=== PATIENT | female | born 1955 | race African-American/Black ===

== ENCOUNTER 2018-11-01 09:22 | Day surgery (SDC) | payer OTHER ==
[2018-11-01] VITALS (12 sets, daily range): BP systolic 95–145; BP diastolic 65–87; PULSE 48–84; RESP 10–51; Ht 152.4 cm; Wt 81.0 kg
[~2018-11-01] VITALS: Ht 152.4 cm; Wt 81.0 kg
[~2018-11-01 09:22] MED LIST: CIPROFLOXACIN 400MG/D5W 200 ML IVPB ONE
[2018-11-01] MEDS ORDERED: HYDR25TA6 PO (10:29)
[2018-11-01] MEDS ORDERED: ATEN-51 PO (10:30)
[2018-11-01] MEDS ORDERED: HYDR-4011 PO (10:30)
[2018-11-01] MEDS ORDERED: GABA400C14 PO (10:31)
--- NOTE | 2018-11-01 12:46 | HPN ---
Date/Time of Note Date/Time of Note DATE: 11/01/18 TIME: 12:46 Interval H&P Admission Note Pt. seen H&P reviewed: No system changes FATIMAH HOLLEY November 01, 2018 12:46
[2018-11-01] MEDS ORDERED: IOHEXOL 300MG/ML 30 ML BTL ONE (12:47)
--- NOTE | 2018-11-01 12:48 | PREAC ---
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) Recreational drugs: Other (former smoker) Surgery & Anesthesia Issues No known issue Meds Anticoagulation: No Beta Bahman within 24 hr: Yes Reported Medications Gabapentin* (Gabapentin*) 400 Mg Capsule, 400 MG PO QHS, #90 CAP 11/01/18 Hydrocodone/Acetaminophen ([place] 5-325 Tablet) 1 Each Tablet, 1 EACH PO BID PRN for PAIN, TAB 11/01/18 Atenolol* (Atenolol*) 25 Mg Tablet, 25 MG PO QPM, #30 TAB 11/01/18 Hydrochlorothiazide* (Hydrochlorothiazide*) 25 Mg Tab, 25 MG PO DAILY, #30 TAB 11/01/18 Meds reviewed: Yes Allergies Coded Allergies: aspirin (Unverified Allergy, Unknown, 11/01/18) avocado (Verified Allergy, Unknown, 11/01/18) strawberry (Unverified Allergy, Unknown, 11/01/18) watermelon (Verified Allergy, Unknown, 11/01/18) Allergies Reviewed: Yes Labs/Studies Labs Reviewed: Reviewed by anesthesiologist Result Diagram: 11/01/18 1040 11/01/18 1040 Laboratory Tests 11/01/18 10:40 test: N/A Studies: ECG, CXR Pre-procedure Exam Last vitals Vital Signs Date Temp Pulse Resp B/P (MAP) Pulse Ox O2 O2 Flow FiO2 Time Delivery Rate 11/01/18 97.4 84 16 120/65 97 Room Air 10:55 (83) Airway: Adequate mouth opening, Adequate thyromental dist Mallampati: Mallampati II Teeth: Normal (edentulous) Lung: Normal Heart: Normal ASA Physical Status ASA physical status: 3 Emergency: None Planned Anesthetic General/MAC: LMA Planned Pain Management Parenteral pain med Pre-operative Attestations Prior to commencing anesthesia and surgery, the patient was re-evaluated, there was verification of: *The patient's identity *The results of appropriate recent lab work and preoperative vital signs *The above evaluation not changing prior to induction *Anesthetic plan, risk benefits, alternative and complications discussed with patient/family; questions answered; patient/family understands, accepts and wishes to proceed. RADHA TREVIÑO WHEEL AND AXLE INSPECTOR November 01, 2018 12:48
[2018-11-01] MEDS ORDERED: PROPOFOL 20 ML ONE (12:51)
[2018-11-01] MEDS ORDERED: LIDOCAINE 2% (SDV) 5 ML INJ ONE (12:51)
[2018-11-01] MEDS ORDERED: FENTAnyl 50 MCG/ML VIAL ONE (12:52)
[2018-11-01] MEDS ORDERED: GLYCOPYRROLATE 0.4 MG INJ ONE (13:00)
[2018-11-01] MEDS ORDERED: CIPROFLOXACIN 400MG/D5W 200 ML ONE (13:06)
[2018-11-01] MEDS ORDERED: ONDANSETRON 4 MG INJ ONE (13:08)
[2018-11-01] MEDS ORDERED: FAMOTIDINE 20 MG INJ ONE (13:08)
[2018-11-01] MEDS ORDERED: DEXAMETHASONE 4 MG/ML 5 ML INJ ONE (13:08)
[2018-11-01] MEDS ORDERED: EPHEDrine 25 MG/5 ML SYG ONE (13:12)
--- NOTE | 2018-11-01 13:57 | PDOCDIS ---
Discharge Instructions DIAGNOSIS Discharge Diagnosis kidney stone CONDITION Suzie Patient Condition: Chadd Good HOME CARE INSTRUCTIONS: Suzie Diet Instructions: Chadd Reduced Calorie ACTIVITY: Suzie Activity Restrictions: Chadd Slowly Increase Activity Suzie Bathing Restrictions: Chadd Shower FOLLOW UP/APPOINTMENTS Follow-up Plan obtain x ray in 2 weeks then follow up in office for removal of stent, call office to schedule REFERRALS Suzie Referring Provider: FATIMAH Serna EVAN November 01, 2018 13:57
--- NOTE | 2018-11-01 13:59 | OPR ---
Date/Time of Note Date/Time of Note DATE: 11/01/18 TIME: 13:58 Operative Report Procedure Date: November 01, 2018 Preoperative Diagnosis kidney stone Postoperative Diagnosis same Operation/Procedure Performed cysto, r rgp, stent, r eswl Surgeon azalia Joint Supervisor none Anesthesia Type: general Estimated Blood Loss: none Transfusion none Specimen none Grafts/Implants none Tubes/Drains 22 cm 4.8 f stent Complications none Pt Condition Post Procedure: stable Disposition: PACU Indications stone Procedure Description full note dictated FATIMAH HOLLEY November 01, 2018 13:59
--- NOTE | 2018-11-01 14:15 | PAC ---
Date/Time of Note Date/Time of Note DATE: 11/01/18 TIME: 14:13 Post-Anesthesia Notes Post-Anesthesia Note Last documented vital signs Vital Signs Date Temp Pulse Resp B/P (MAP) Pulse Ox O2 O2 Flow FiO2 Time Delivery Rate 11/01/18 97.4 84 16 120/65 97 Room Air 10:55 (83) Activity: WNL Respiratory function: WNL Cardiovascular function: WNL Mental status: Baseline Pain reasonably controlled: Yes Hydration appropriate: Yes Nausea/Vomiting absent: Yes Comments BP 134/68 Spo2 100% HR 62 RR 16 Temp 97.2F RADHA TREVIÑO DIRECTOR STAGE November 01, 2018 14:15
[2018-11-01] MEDS ORDERED: KETOROLAC 15 MG INJ IV PRN (14:30)
[2018-11-01] MEDS ORDERED: FENTAnyl 50 MCG/ML VIAL IV PRN ×2 (14:30)
[2018-11-01] MEDS ORDERED: OXYCODONE/ACETAMINOPHEN (5/325) TAB PO PRN (14:30)
[2018-11-01] MEDS ORDERED: HYDROmorphONE 1 MG/5 ML IV SYRINGE IV PRN ×2 (14:30)
[2018-11-01] MEDS ORDERED: ONDANSETRON 4 MG INJ IV PRN (14:30)
[2018-11-01] MEDS ORDERED: LACTATED RINGER'S 1,000 ML IV SCH (14:30)
[2018-11-01] MEDS ORDERED: MEPERIDINE 25 MG INJ IV PRN (14:30)
--- NOTE | 2018-11-01 15:35 | OPR ---
DATE OF OPERATION: 11/01/2018 PREOPERATIVE DIAGNOSIS: Right nephrolithiasis. POSTOPERATIVE DIAGNOSIS: A 10 x 6 x 6 right midpole renal calculi. OPERATION PERFORMED: Cystoscopy, right retrograde pyelogram, insertion of right ureteral stent, righ t extracorporeal shockwave lithotripsy. SURGEON: Jose Pop MD ANESTHESIA: General. COMPLICATIONS: None. DRAINS: A 22 cm 4.8-Niue[place] double-J ureteral stent. DESCRIPTION OF PROCEDURE: The patient was brought into the operating room and placed on the [employer] SLX lithotripter for right extracorporeal shockwave lithotripsy. A timeout was undertaken. Appropriate pressure points were padded. She received preoperative antibiotic therapy and sequential compression devices were applied. A KUB was obtained which demonstrated a 10 x 6 x 6 mm radiodense stone overlying the right renal fossa. Rigid cystoscopy was undertaken with a 12-degree and 30-degre e angle lens. No abnormalities of the urethra could be appreciated. Bowel was inspected in a system atic fashion. No foreign body, bladder stone or tumor could be appreciated. Bilateral ureteral orif ices within normal limits. A right retrograde pyelogram was undertaken with a 5-Niuean open-ended ca theter demonstrating a normal course and caliber of the right ureter. Within the right midpole is a stone that fills out the major/minor calices. A wire was placed up into the upper pole, which then a llowed for a 22 cm 4.8-Niue[place] double-J ureteral stent to be inserted with the proximal aspect coiling within the renal pelvis and the distal aspect coiling in the bladder. Attached to the distal end wa s a tapered string. Proper positioning was confirmed with direct vision fluoroscopy and a KUB. Her bladder was emptied and she was repositioned on the table for right extracorporeal shockwave lithotri psy. The stone burden was easily placed in the appropriate focal point in the AP and lateral project ion, which then allowed for ESWL with initial energy setting of 2, which was progressively increased to 7 at 200 shocks a 2 minute pause was undertaken. A total of 2400 shocks were delivered intermitte ntly. She was repositioned to keep the stone burden in the appropriate focal point. At 2400 shocks, excellent fragmentation was noted. She was transferred to recovery room in stable condition. A KUB with obliques will be obtained in 2 weeks' time and then hopeful cystoscopy, stent removal has been stressed to her and her that removal of the stent within less than 3 months to avoid encrusta tion and complications have been discussed. She was discharged home on [place] one tab p.o. q.6h . p.r.n., dispensed #25, no refill. Dictated By: JOSE FISCHER/NTS Conf#: [id number] DID#: [id number]
== END 2018-11-01 15:33 | disposition home or self-care (01) ==
LOC: SDS 09:22
PROVIDERS: ATTEND Urology
DX: N20.0 Calculus of kidney (principal); I10 Essential (primary) hypertension; Z87.891 Personal history of nicotine dependence
CPT/HCPCS: 52356; 80053; 85025; 85610; 85730; C2617; J0744; J1100; J2405; J3010; Q9967; Z7512; Z7610